=== PATIENT | female | born 1950 | race Caucasian/White ===

== ENCOUNTER 2019-05-02 19:11 | Observation (INO) | payer MEDICARE, OTHER ==
--- NOTE | 2019-05-02 19:37 | ER Document Report ---
ED Medical Screen (RME) - General Chief Complaint: Syncope Stated Complaint: SYNCOPE/DIZZINESS Time Seen by Provider: 05/02/19 19:28 Mode of Arrival: Wheelchair Information source: Patient Notes: 68-year-old female presents to ED for syncopal episode at home. She was sitting in the chair and did not feel good so she had her stand behind her. According to the patient her and daughter states that she passed out her head flopped back her eyes were open and she had a snoring type respirations. She states then her eyes rolled back for about 5 seconds and and then she woke u p. states that while she was out the son could not find a pulse but according to the patient that he says that he found a faint pulse. the patient states it is since she came to the son said he could feel her pulse good again. first episode of syncope was in December or January in [place] over there. She states she was in the laundry room she got very dizzy black feeling and next thing she knows she was on the floor looking up. Her heard the noise came in there and states that she was looking him him while she was on the floor. She states she did not go to the ER for several hours but had several episodes of where she was going in and out getting dizzy because if it was going to go away she did not want to go to the ER. They went to the ER. She states they kept her for 24 hours and did all kinds of test was she states the only thing they found different was a 3.9 cm aortic aneurysm they told her that they would monitor that until he got to the 5 and then they would be doing surgery. She states that this next syncopal episode was in March eating healthy since in [place] and she did not come to the hospital. She sat on the floor because she was so dizzy and she was afraid she was going to fall to do she states she did not actually lose consciousness that time. She states the dizziness is coming and going today.. She states she did fall today about 2 or 3:00 I have greeted and performed a rapid initial assessment of this patient. A comprehensive ED assessment and evaluation of the patient, analysis of test results and completion of medical decision making process will be conducted by an additional ED providers. Physical Exam - Vital signs Vitals: Temp Pulse Resp BP Pulse Ox 98 F 114 H 18 159/109 H 97 05/02/19 19:19 05/02/19 19:19 05/02/19 19:19 05/02/19 19:19 05/02/19 19:19 Course - Vital Signs Vital signs: Temp Pulse Resp BP Pulse Ox 98 F 114 H 18 159/109 H 97 05/02/19 19:19 05/02/19 19:19 05/02/19 19:19 05/02/19 19:19 05/02/19 19:19
[2019-05-02] MEDS ORDERED: DILTIAZEM HCL/D5W 125 MG/125 ML RTUINJ IV PRN ×2 (20:44→23:18)
[2019-05-02] MEDS ORDERED: DILTIAZEM HCL INJ 25 MG/5 ML VIAL IV ONE (20:44)
[2019-05-02 20:47] LABS: APPEARANCE,URINE SLIGHTLY-CLOUDY; BILIRUBIN,URINE NEGATIVE (NEGATIVE); COLOR,URINE YELLOW; GLUCOSE, URINE NEGATIVE (NEGATIVE); KETONES,URINE 20 mg/dL (NEGATIVE); LEUKOCYTE ESTERASE,URINE LARGE (NEGATIVE); NITRITE,URINE POSITIVE (NEGATIVE); PROTEIN,URINE NEGATIVE (NEGATIVE); URINE SPECIFIC GRAVITY 1.017; UROBILINOGEN,URINE NEGATIVE mg/dL (<2.0)
[2019-05-02 20:59] LABS: ABSOLUTE MONOCYTES (AUTO) 0.8 10^3/uL (0.1-1.4); ABSOLUTE NEUT (AUTO) 9.7 10^3/uL (1.7-8.2); BASOPHILS % (AUTO) 0.3 % (0-2); EOSINOPHILS % (AUTO) 0.2 % (0-6); HEMATOCRIT 37.7 % (36.0-47.0); HEMOGLOBIN 12.6 g/dL (12.0-15.5); LYMPHOCYTES % (AUTO) 15.9 % (13-45); MEAN CORPUSCULAR HEMOGLOBIN 30.5 pg (27.0-33.4); MEAN CORPUSCULAR HGB CONC 33.4 g/dL (32.0-36.0); MEAN CORPUSCULAR VOLUME 91 fl (80-97); MONOCYTES % (AUTO) 6.6 % (3-13); PLATELET COUNT 205 10^3/uL (150-450); RED BLOOD COUNT 4.13 10^6/uL (3.72-5.28); RED CELL DISTRIBUTION WIDTH 14.2 % (11.5-14.0); TOTAL CELLS COUNTED % (AUTO) 100 %; WHITE BLOOD COUNT 12.6 10^3/uL (4.0-10.5)
--- NOTE | 2019-05-02 21:08 | ER Document Report ---
ED General - General Chief Complaint: Syncope Stated Complaint: SYNCOPE/DIZZINESS Time Seen by Provider: 05/02/19 19:28 Mode of Arrival: Wheelchair - HPI Notes: 68-year-old female with a history of atrial fibrillation on flecainide presents with syncopal episode. Patient states earlier today she just not felt well, this is somewhat poorly described but approximate hour prior to arrival she states she was sitting down when she suddenly just passed out. She had no prodrome, no antecedent dizziness. According to family she was out for several minutes, turned blue at one point they believe quit breathing. They are uncertain if she lost her pulse or not. She then after several minutes spontaneously came around. She denies any headache. She used to be on Eliquis but when moved here, did not have continued prescription and could not afford it. She denies any fever chills sweats. No headache, no neurologic complaints. No associated chest pain. Compliant with her flecainide. Moderate intensity, sudden onset, nonradiating. No other modifying factors, no other associated symptoms, no other provocative or palliative factors. - Related Data Allergies/Adverse Reactions: Penicillins Allergy (Verified 05/02/19 19:41) prochlorperazine [From Compazine] Allergy (Verified 05/02/19 19:41) Home Medications: Propranolol, Letrozole, Gabapentin, Flecainide, Cetirizine Past Medical History - General Information source: Patient - Social History Smoking Status: Never Smoker Family History: Reviewed & Not Pertinent Patient has suicidal ideation: No Patient has homicidal ideation: No - Medical History Notes: Includes atrial fibrillation Review of Systems - Review of Systems Notes: Review of systems as in the history of present illness, otherwise negative x 10 systems. Physical Exam - Vital signs Vitals: Temp Pulse Resp BP Pulse Ox 98 F 114 H 18 159/109 H 97 05/02/19 19:19 05/02/19 19:19 05/02/19 19:19 05/02/19 19:19 05/02/19 19:19 - Notes Notes: General: Well developed . HEENT: Normocephalic, atraumatic. Pupils equal round reactive to light. No JVD. Chest: No trauma. Respiratory: Good air exchange, normal excursion. Cardiac: Regular rhythm. No murmurs or gallops. Abdomen: Soft, benign. Nondistended. Nontender. Back: No asymmetry or gross abnormality. Motor: Grossly normal power and tone. Neurologic: Alert, nonfocal. Cranial nerves II-12 are intact. Sensation intact. Vascular: Well perfused. Normal peripheral pulses. Skin: No petechiae or purpura. Course - Re-evaluation Re-evalutation: 05/02/19 21:07 68-year-old female presents with syncopal episode, certainly concerning for the potential absence of pulse, apnea and color change. Eyes strongly suspect she may have had underlying A. fib with RVR, less likely would entertain ventricular arrhythmia. Given the absence of any headache, any abnormal neurologic findings, doubt intracranial structural emergency or bleed. Plan proceed with labs and EKG, x-ray. She is in A. fib with RVR so we will proceed with rate control with IV diltiazem drip. 05/02/19 22:33 Patient is controlled on a drip at 5. Labs including CBC chemistries unremarkable, urinalysis consistent with infection, treated with IV antibiotics. Will give an initial dose of Lovenox as well. Admitted to the [facility]. - Vital Signs Vital signs: Temp Pulse Resp BP Pulse Ox 98 F 114 H 18 122/91 H 98 05/02/19 19:19 05/02/19 19:19 05/02/19 22:15 05/02/19 22:15 05/02/19 22:15 - Laboratory Result Diagrams: 05/02/19 20:20 05/02/19 20:20 Laboratory results interpreted by me: 05/02/19 05/02/19 05/02/19 20:20 20:20 20:20 WBC 12.6 H RDW 14.2 H Absolute Neuts (auto) 9.7 H Glucose 132 H Urine Ketones 20 H Urine Nitrite POSITIVE H Ur Leukocyte Esterase LARGE H - EKG Interpretation by Me EKG shows normal: QRS Complexes - Nonspecific ST-T changes Rate: Tachycardia Rhythm: A.Fib Critical Care Note - Critical Care Note Total time excluding time spent on procedures (mins): 25 Comments: Includes management of vasoactive drips, evaluation management of A. fib with RVR, evaluation of labs radiographs and discussion with admitting physician. Does not include time spent perform procedures. Discharge - Discharge Clinical Impression: Atrial fibrillation Qualifiers: Atrial fibrillation type: unspecified Qualified Code(s): I48.91 - Unspecified atrial fibrillation Condition: Serious Disposition: ADMITTED INPATIENT Admitting Provider: Jd (Hospitalist) Unit Admitted: [facility]
[2019-05-02 21:18] LABS: ALBUMIN 4.3 g/dL (3.5-5.0); ALKALINE PHOSPHATASE 71 U/L (38-126); ANION GAP 11 (5-19); ASPARTATE AMINO TRANSFERASE 23 U/L (14-36); BILIRUBIN,DIRECT 0.1 mg/dL (0.0-0.4); BILIRUBIN,TOTAL 0.5 mg/dL (0.2-1.3); BLOOD UREA NITROGEN 17 mg/dL (7-20); CALCIUM 9.5 mg/dL (8.4-10.2); CARBON DIOXIDE 26 mmol/L (22-30); CHLORIDE 102 mmol/L (98-107); CREATINE KINASE 55 U/L (30-135); GLUCOSE 132 mg/dL (75-110); POTASSIUM 3.8 mmol/L (3.6-5.0); TOTAL PROTEIN 7.8 g/dL (6.3-8.2)
[2019-05-02 21:31] LABS: CREATINE KINASE MB 0.69 ng/mL (<4.55)
--- NOTE | 2019-05-02 21:31 | RADIOLOGY REPORT (SQ) ---
EXAM DESCRIPTION: RadLex: XR HIP 2 OR MORE VIEWS Views: AP pelvis and one additional view of left hip CLINICAL HISTORY: 68 years Female, Hip injury COMPARISON: None. FINDINGS: Pelvic alignment is anatomic. There is some remodeling of the right rami. No diastasis of the sacroiliac joints or symphysis pubis. No left hip fracture or dislocation. IMPRESSION: 1. No acute findings.
[2019-05-02 21:32] LABS: TROPONIN I < 0.012 ng/mL
--- NOTE | 2019-05-02 21:36 | RADIOLOGY REPORT (SQ) ---
XR CHEST 1 VIEW CLINICAL STATEMENT: Syncope COMPARISON: None FINDINGS: Cardiomediastinal silhouette is within normal limits. There is no focal lung consolidation or pleural effusion. No evidence of pulmonary edema or pneumothorax. IMPRESSION: No acute cardiopulmonary disease.
[2019-05-02] MEDS ORDERED: CEFTRIAXONE 1 GM/D5W RTU 1 GM/50 ML RTUPB IV ONE (21:40)
[2019-05-02] MEDS ORDERED: ENOXAPARIN SODIUM INJ 100 MG/1 ML DISP.SYRIN SUBCUT SCH (22:45)
[2019-05-02] MEDS ORDERED: MAGNESIUM HYDROXIDE SUSP 30 ML UDCUP PO PRN (23:10)
[2019-05-02] MEDS ORDERED: ONDANSETRON HCL INJ/PF 4 MG/2 ML SDV IV PRN (23:10)
[2019-05-02] MEDS ORDERED: TEMAZEPAM 15 MG CAPSULE PO PRN (23:10)
[2019-05-02] MEDS ORDERED: MAG HYDROX/AL HYDROX/SIMETH SUSP 30 ML UDCUP PO PRN (23:10)
[2019-05-03] MEDS: FAMOTIDINE 20 MG TABLET PO SCH ×3 (01:03→22:05)
[2019-05-03 01:17] LABS: FREE T3 3.17 pg/mL (2.77-5.27); FREE T4 (FREE THYROXINE) 1.26 ng/dL (0.78-2.19)
[2019-05-03 01:31] LABS: THYROID STIMULATING HORMONE 1.21 uIU/mL (0.47-4.68)
[2019-05-03] MEDS ORDERED: RINGERS SOLUTION,LACTATED 1,000 ML IV ONE (03:00)
--- NOTE | 2019-05-03 03:06 | PDOC H&P ---
<PEDROJOSR Menard - Last Filed: 05/03/19 02:48> History of Present Illness Admission Date/PCP: 05/02/2019 22:30 No local PCP Patient complains of: Syncopal episode History of Present Illness: JESS YORK is a 68 year old female who presented to the emergency room with an acute syncopal episode. She admits that she suddenly began feeling dizzy and lightheaded while at home, about an hour prior to her ER presentation, suspecting she may be about to "pass out" she sat down in a chair and had her stand behind her. She then "passed out" for about 60 seconds and woke up. She further admits that she has had intermittent episodes of dizziness throughout the day today. She denies other associated or accompanying signs and symptoms. She admits several prior similar episodes of syncope over the last 4 months. She further admits a history of paroxysmal atrial fibrillation and is supposed to be taking Eliquis, which was being provided to her as samples by her previous care provider. Since she moved to this area recently, she no longer has access to this medication, but insists she has been taking her flecainide as directed. She has not identified any aggravating or ameliorating factors for her syncope. In the emergency room she was found to have atrial fibrillation with a rapid ventricular response and was started on a Cardizem infusion after receiving bolus dose of intravenous Cardizem. Patient was subsequently admitted to the IMCU for further evaluation and treatment. Past Medical History Cardiac Medical History: Reports: Atrial Fibrillation, Hypertension, Other - Abdominal aortic aneurysm (3.6 cm) Denies: Congestive Heart Failure, Coronary Artery Disease, Hyperlipidema Pulmonary Medical History: Denies: Asthma, Chronic Obstructive Pulmonary Disease (COPD) EENT Medical History: Reports: Nose - Allergic rhinitis Denies: Cataracts, Ears - Hearing aids Neurological Medical History: Reports: Other - Sense of Denies: Hemorrhagic CVA, Ischemic CVA, Seizures Endocrine Medical History: Denies: Diabetes Mellitus Type 1, Diabetes Mellitus Type 2, Hyperthyroidism, Hypothyroidism Renal/ Medical History: Denies: Chronic Kidney Disease, Nephrolithiasis Malignancy Medical History: Reports: Breast Cancer, Skin Cancer - Basal cell. [place] GI Medical History: Denies: Cirrhosis, Hepatitis Musculoskeltal Medical History: Reports: Other - Chronic back pain secondary to herniated disks Denies: Arthritis, Gout Skin Medical History: Denies: Eczema, Psoriasis Psychiatric Medical History: Denies: Alcohol Dependency, Substance Abuse, Tobacco Dependency Traumatic Medical History: Reports: None Hematology: Denies: Anemia, Bleeding Tendencies Infectious Medical History: Reports: None Past Surgical History Past Surgical History: Reports: Appendectomy, Mastectomy - Left, Thyroidectomy, Tonsillectomy Social History Information Source: Patient Lives with: Family, Spouse/Significant other Smoking Status: Former Smoker Electronic Cigarette use?: No Frequency of Alcohol Use: None Hx Recreational Drug Use: No Drugs: None Hx Prescription Drug Abuse: No - Advance Directive Resuscitation Status: Full Code Surrogate healthcare decision maker:: Gregorio York Family History Family History: CAD, Hypertension, Malignancy, Other - Aortic aneurysms. denies: DM Parental Family History Reviewed: Yes Children Family History Reviewed: No Sibling(s) Family History Reviewed.: Yes Medication/Allergy Home Medications: Aspirin [Aspirin 325 mg Tablet] 325 mg PO DAILY 05/03/19 Cetirizine HCl [Zyrtec] 10 mg PO DAILY 05/03/19 Flecainide Acetate [Tambocor 100 Mg Tablet] 50 mg PO Q12 05/03/19 Gabapentin [Neurontin 300 mg Capsule] 300 mg PO BID 05/03/19 Gabapentin [Neurontin 300 mg Capsule] 600 mg PO QHS 05/03/19 Letrozole [Femara 2.5 Mg Tablet] 2.5 mg PO DAILY 05/03/19 Propranolol HCl [Inderal 40 Mg Tablet] 40 mg PO Q12 05/03/19 Allergies/Adverse Reactions: Penicillins Allergy (Verified 05/02/19 19:41) prochlorperazine [From Compazine] Allergy (Verified 05/02/19 19:41) Review of Systems Constitutional: ABSENT: chills, fever(s) Eyes: ABSENT: visual disturbances, other - Eye pain Ears: ABSENT: hearing changes, other - Ear pain Nose, Mouth, and Throat: ABSENT: headache(s), mouth pain, sore throat Cardiovascular: PRESENT: as per HPI, other - Syncopal episode. ABSENT: chest pain, palpitations Respiratory: ABSENT: cough, dyspnea Gastrointestinal: ABSENT: abdominal pain, constipation, diarrhea, nausea, vomiting Genitourinary: ABSENT: dysuria, hematuria Musculoskeletal: ABSENT: back pain, joint swelling, muscle weakness Integumentary: ABSENT: pruritus, rash Neurological: PRESENT: as per HPI, dizziness, syncope. ABSENT: confusion, convulsions, focal weakness, memory loss Psychiatric: ABSENT: anxiety, depression Endocrine: ABSENT: cold intolerance, heat intolerance Hematologic/Lymphatic: ABSENT: easy bleeding, easy bruising Allergic/Immunologic: ABSENT: seasonal rhinorrhea Physical Exam Vital Signs: Temp Pulse Resp BP Pulse Ox 98 F 114 H 18 117/98 H 95 05/02/19 19:19 05/02/19 19:19 05/02/19 21:16 05/02/19 21:16 05/02/19 21:16 Intake & Output 04/30/19 05/01/19 05/02/19 23:59 23:59 23:59 Weight 88.451 kg General appearance: PRESENT: no acute distress, cooperative Head exam: PRESENT: atraumatic, normocephalic Eye exam: PRESENT: conjunctiva pink. ABSENT: conjunctival injection, scleral icterus Ear exam: PRESENT: normal external ear exam. ABSENT: bleeding, drainage Mouth exam: PRESENT: dry mucosa, neck supple Neck exam: ABSENT: thyromegaly, tracheal deviation Respiratory exam: PRESENT: clear to auscultation melissa, symmetrical, unlabored Cardiovascular exam: PRESENT: irregular rhythm - Irregularly irregular rate, systolic murmur - Grade 1/6 holosystolic murmur heard best at the apex with minimal precordial radiation, tachycardia. ABSENT: clicks, gallop, rubs Pulses: PRESENT: normal radial pulses, normal dorsalis pedis pul Vascular exam: PRESENT: normal capillary refill. ABSENT: pallor GI/Abdominal exam: PRESENT: normal bowel sounds, soft. ABSENT: tenderness Rectal exam: PRESENT: deferred Extremities exam: ABSENT: joint swelling, pedal edema Musculoskeletal exam: ABSENT: deformity, dislocation Neurological exam: PRESENT: alert, oriented to person, oriented to place, oriented to time, oriented to situation, CN II-XII grossly intact. ABSENT: motor sensory deficit Psychiatric exam: PRESENT: appropriate affect, normal mood Skin exam: PRESENT: dry, intact, warm. ABSENT: jaundice, rash, urticaria Results Laboratory Results: 05/02/19 20:20 05/02/19 20:20 05/02/19 05/02/19 05/02/19 20:20 20:20 20:20 WBC 12.6 H RBC 4.13 Hgb 12.6 Hct 37.7 MCV 91 MCH 30.5 MCHC 33.4 RDW 14.2 H Plt Count 205 Seg Neutrophils % 77.0 Sodium 139.0 Potassium 3.8 Chloride 102 Carbon Dioxide 26 Anion Gap 11 BUN 17 Creatinine 0.71 Est GFR ( Amer) > 60 Glucose 132 H Calcium 9.5 Total Bilirubin 0.5 AST 23 Alkaline Phosphatase 71 Total Protein 7.8 Albumin 4.3 Urine Color YELLOW Urine Appearance SLIGHTLY-CLOUDY Urine pH 6.0 Ur Specific [place] 1.017 Urine Protein NEGATIVE Urine Glucose (UA) NEGATIVE Urine Ketones 20 H Urine Blood NEGATIVE Urine Nitrite POSITIVE H Ur Leukocyte Esterase LARGE H Urine WBC (Auto) 126 Urine RBC (Auto) 11 05/02/19 05/02/19 20:20 20:20 Creatine Kinase 55 CK-MB (CK-2) 0.69 Troponin I < 0.012 Impressions: Chest X-Ray 05/02/19 20:46 IMPRESSION: No acute cardiopulmonary disease. Hip X-Ray 05/02/19 21:09 IMPRESSION: 1. No acute findings. Assessment and Plan - Diagnosis (1) Episode of syncope Qualifiers: Syncope type: unspecified Qualified Code(s): R55 - Syncope and collapse Is this a current diagnosis for this admission?: Yes Plan: Patient is being admitted to the [facility] and will be observed with serial cardiac enzymes as well as cardiac monitor. She is being treated with diltiazem as an intravenous infusion to control her rate. Diltiazem will be weaned as soon as possible. A cardiology consult will be obtained with Dr. Ibarra. Patient will be restarted on Eliquis for her chronic atrial fibrillation stroke prevention. (2) Atrial fibrillation with rapid ventricular response Plan: Patient is being admitted to the [facility] and will be observed with serial cardiac enzymes as well as cardiac monitor. She is being treated with diltiazem as an intravenous infusion to control her rate. Diltiazem will be weaned as soon as possible. A cardiology consult will be obtained with Dr. Ibarra. Patient will be restarted on Eliquis for her chronic atrial fibrillation stroke prevention. Will be continued on her usual medication regiment for rate control. (3) Pyuria Is this a current diagnosis for this admission?: Yes Plan: Patient started on oral Keflex pending urine culture results. (4) Essential tremor Is this a current diagnosis for this admission?: Yes Plan: Patient will be continued on therapy with Inderal which she uses for her essential tremor, hypertension and atrial fibrillation rate control. (5) Hypertension Qualifiers: Hypertension type: essential hypertension Qualified Code(s): I10 - Essential (primary) hypertension Is this a current diagnosis for this admission?: Yes Plan: Patient will be continued on therapy with Inderal which she uses for her essential tremor, hypertension and atrial fibrillation rate control. 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 (7) Abdominal aortic aneurysm (AAA) 35 to 39 mm in diameter Is this a current diagnosis for this admission?: Yes Plan: Patient's abdominal uric will need to be followed on a regular basis by her primary care provider or cardiology with an appropriate and timely referral to vascular surgery. - Time Medications reviewed and adjusted accordingly: Yes Anticipated discharge: Home - Inpatient Certification Based on my medical assessment, after consideration of the patient's comorbidities, presenting symptoms, or acuity I expect that the services needed warrant INPATIENT care.: Yes I certify that my determination is in accordance with my understanding of Medicare's requirements for reasonable and necessary INPATIENT services [42 CFR 412.3e].: Yes Medical Necessity: Significant Comorbidiites Make Outpatient Treatment Too Risky, Need Close Monitoring Due to Risk of Patient Decompensation, Need For IV Fluids, Need For Continuous Telemetry Monitoring, Need for Neurological Checks, Risk of Complication if Not Cared For in Hospital <AMARA SEVERINO - Last Filed: 05/03/19 17:10> History of Present Illness Admission Date/PCP: 05/02/19 22:42 History of Present Illness: JESS YORK is a 68 year old female Physical Exam Vital Signs: Temp Pulse Resp BP Pulse Ox 98.5 F 70 18 111/62 95 05/03/19 08:56 05/03/19 14:00 05/03/19 08:56 05/03/19 08:56 05/03/19 08:56 Intake & Output 05/02/19 05/03/1919 06:59 06:59 06:59 Intake Total 1057 Balance 1057 Weight 195 lb Results Laboratory Results: 05/03/19 10:00 05/03/19 10:00 05/02/19 05/02/19 05/02/19 20:20 20:20 20:20 WBC 12.6 H RBC 4.13 Hgb 12.6 Hct 37.7 MCV 91 MCH 30.5 MCHC 33.4 RDW 14.2 H Plt Count 205 Seg Neutrophils % 77.0 Sodium 139.0 Potassium 3.8 Chloride 102 Carbon Dioxide 26 Anion Gap 11 BUN 17 Creatinine 0.71 Est GFR ( Amer) > 60 Glucose 132 H Calcium 9.5 Magnesium Total Bilirubin 0.5 AST 23 Alkaline Phosphatase 71 Total Protein 7.8 Albumin 4.3 TSH Free T4 Free T3 pg/mL Urine Color YELLOW Urine Appearance SLIGHTLY-CLOUDY Urine pH 6.0 Ur Specific [place] 1.017 Urine Protein NEGATIVE Urine Glucose (UA) NEGATIVE Urine Ketones 20 H Urine Blood NEGATIVE Urine Nitrite POSITIVE H Ur Leukocyte Esterase LARGE H Urine WBC (Auto) 126 Urine RBC (Auto) 11 05/02/19 05/03/19 05/03/19 20:20 10:00 10:00 WBC 8.1 RBC 3.72 Hgb 11.5 L Hct 34.1 L MCV 92 MCH 31.0 MCHC 33.9 RDW 14.2 H Plt Count 178 Seg Neutrophils % Sodium 141.1 Potassium 3.5 L Chloride 104 Carbon Dioxide 24 Anion Gap 13 BUN 11 Creatinine 0.58 Est GFR ( Amer) > 60 Glucose 125 H Calcium 7.9 L Magnesium 1.7 Total Bilirubin AST Alkaline Phosphatase Total Protein Albumin TSH 1.21 Free T4 1.26 Free T3 pg/mL 3.17 Urine Color Urine Appearance Urine pH Ur Specific [place] Urine Protein Urine Glucose (UA) Urine Ketones Urine Blood Urine Nitrite Ur Leukocyte Esterase Urine WBC (Auto) Urine RBC (Auto) 05/02/19 05/02/19 05/03/19 20:20 20:20 02:30 Creatine Kinase 55 51 CK-MB (CK-2) 0.69 Troponin I < 0.012 05/03/19 05/03/19 05/03/19 02:30 10:00 10:00 Creatine Kinase 41 CK-MB (CK-2) 0.43 0.51 Troponin I < 0.012 0.034 05/03/19 16:15 Creatine Kinase 42 CK-MB (CK-2) Troponin I Impressions: Chest X-Ray 05/02/19 20:46 IMPRESSION: No acute cardiopulmonary disease. Hip X-Ray 05/02/19 21:09 IMPRESSION: 1. No acute findings.
[2019-05-03 03:07] LABS: CREATINE KINASE MB 0.43 ng/mL (<4.55)
[2019-05-03 03:20] LABS: TROPONIN I < 0.012 ng/mL
[2019-05-03] MEDS ORDERED: DIGOXIN INJ 0.5 MG/2 ML AMPULE IV ONE (08:30)
--- NOTE | 2019-05-03 09:25 | EKG REPORT ---
SEVERITY:- ABNORMAL ECG - ATRIAL FIBRILLATION PAIRED VENTRICULAR PREMATURE COMPLEXES PROBABLE POSTERIOR INFARCT NONSPECIFIC T ABNORMALITIES, LATERAL LEADS BORDERLINE PROLONGED QT INTERVAL : Confirmed by: Heather Ibarra MD 03-May-2019 09:25:15
[2019-05-03 10:31] LABS: HEMATOCRIT 34.1 % (36.0-47.0); HEMOGLOBIN 11.5 g/dL (12.0-15.5); MEAN CORPUSCULAR HGB CONC 33.9 g/dL (32.0-36.0); MEAN CORPUSCULAR VOLUME 92 fl (80-97); PLATELET COUNT 178 10^3/uL (150-450); RED BLOOD COUNT 3.72 10^6/uL (3.72-5.28); RED CELL DISTRIBUTION WIDTH 14.2 % (11.5-14.0); WHITE BLOOD COUNT 8.1 10^3/uL (4.0-10.5)
[2019-05-03] MEDS: DOCUSATE SODIUM 100 MG CAPSULE PO SCH ×2 (10:37→17:50)
[2019-05-03] MEDS: CEPHALEXIN 500 MG CAPSULE PO SCH ×2 (10:37→22:05)
[2019-05-03] MEDS: APIXABAN 5 MG TABLET PO SCH ×2 (10:37→17:50)
[2019-05-03] MEDS ORDERED: DILTIAZEM HCL/D5W 125 MG/125 ML RTUINJ IV PRN (10:49)
[2019-05-03 10:54] LABS: ANION GAP 13 (5-19); BLOOD UREA NITROGEN 11 mg/dL (7-20); CALCIUM 7.9 mg/dL (8.4-10.2); CARBON DIOXIDE 24 mmol/L (22-30); CHLORIDE 104 mmol/L (98-107); CREATINE KINASE 41 U/L (30-135); GLUCOSE 125 mg/dL (75-110); POTASSIUM 3.5 mmol/L (3.6-5.0)
[2019-05-03] MEDS ORDERED: METOPROLOL TARTRATE 50 MG TABLET PO SCH (11:00)
[2019-05-03 11:04] LABS: CREATINE KINASE MB 0.51 ng/mL (<4.55); TROPONIN I 0.034 ng/mL
[2019-05-03] MEDS ORDERED: FLECAINIDE ACETATE 100 MG TABLET PO ONE (12:30)
[2019-05-03 17:10] LABS: CREATINE KINASE MB 0.38 ng/mL (<4.55); TROPONIN I 0.038 ng/mL
--- NOTE | 2019-05-03 17:12 | PDOC PROGRESS REPORT ---
Subjective Progress Note for:: 05/03/19 Subjective:: This is a 68-year-old female who was admitted for A. fib with RVR. She was initially started on Cardizem drip and was weaned off overnight. Patient has converted to normal sinus rhythm with a heart rate in the 17th. She denies chest pain or shortness of breath. Appreciate cardiology recommendations. Reason For Visit: ATRIAL FIBRILLATION WITH RAPID VENTRICULAR Physical Exam Vital Signs: Temp Pulse Resp BP Pulse Ox 98.5 F 70 18 111/62 95 05/03/19 08:56 05/03/19 14:00 05/03/19 08:56 05/03/19 08:56 05/03/19 08:56 Intake & Output 05/02/19 05/03/19 05/04/19 06:59 06:59 06:59 Intake Total 1057 Balance 1057 Weight 195 lb General appearance: PRESENT: no acute distress, well-developed, well-nourished Head exam: PRESENT: atraumatic, normocephalic Eye exam: PRESENT: conjunctiva pink, EOMI, PERRLA. ABSENT: scleral icterus Ear exam: PRESENT: normal external ear exam Mouth exam: PRESENT: moist, tongue midline Neck exam: ABSENT: carotid bruit, JVD, lymphadenopathy, thyromegaly Respiratory exam: PRESENT: clear to auscultation melissa. ABSENT: rales, rhonchi, wheezes Cardiovascular exam: PRESENT: RRR. ABSENT: diastolic murmur, rubs, systolic murmur Pulses: PRESENT: normal dorsalis pedis pul GI/Abdominal exam: PRESENT: normal bowel sounds, soft. ABSENT: distended, guarding, mass, organolmegaly, rebound, tenderness Rectal exam: PRESENT: deferred Extremities exam: PRESENT: full ROM. ABSENT: calf tenderness, clubbing, pedal edema Neurological exam: PRESENT: alert, awake, oriented to person, oriented to place, oriented to time, oriented to situation, CN II-XII grossly intact. ABSENT: motor sensory deficit Skin exam: PRESENT: dry, intact, warm. ABSENT: cyanosis, rash Results Laboratory Results: 05/03/19 10:00 05/03/19 10:00 05/02/19 05/02/19 05/02/19 20:20 20:20 20:20 WBC 12.6 H RBC 4.13 Hgb 12.6 Hct 37.7 MCV 91 MCH 30.5 MCHC 33.4 RDW 14.2 H Plt Count 205 Seg Neutrophils % 77.0 Sodium 139.0 Potassium 3.8 Chloride 102 Carbon Dioxide 26 Anion Gap 11 BUN 17 Creatinine 0.71 Est GFR ( Amer) > 60 Glucose 132 H Calcium 9.5 Magnesium Total Bilirubin 0.5 AST 23 Alkaline Phosphatase 71 Total Protein 7.8 Albumin 4.3 TSH Free T4 Free T3 pg/mL Urine Color YELLOW Urine Appearance SLIGHTLY-CLOUDY Urine pH 6.0 Ur Specific [place] 1.017 Urine Protein NEGATIVE Urine Glucose (UA) NEGATIVE Urine Ketones 20 H Urine Blood NEGATIVE Urine Nitrite POSITIVE H Ur Leukocyte Esterase LARGE H Urine WBC (Auto) 126 Urine RBC (Auto) 11 05/02/19 05/03/19 05/03/19 20:20 10:00 10:00 WBC 8.1 RBC 3.72 Hgb 11.5 L Hct 34.1 L MCV 92 MCH 31.0 MCHC 33.9 RDW 14.2 H Plt Count 178 Seg Neutrophils % Sodium 141.1 Potassium 3.5 L Chloride 104 Carbon Dioxide 24 Anion Gap 13 BUN 11 Creatinine 0.58 Est GFR ( Amer) > 60 Glucose 125 H Calcium 7.9 L Magnesium 1.7 Total Bilirubin AST Alkaline Phosphatase Total Protein Albumin TSH 1.21 Free T4 1.26 Free T3 pg/mL 3.17 Urine Color Urine Appearance Urine pH Ur Specific [place] Urine Protein Urine Glucose (UA) Urine Ketones Urine Blood Urine Nitrite Ur Leukocyte Esterase Urine WBC (Auto) Urine RBC (Auto) 05/02/19 05/02/19 05/03/19 20:20 20:20 02:30 Creatine Kinase 55 51 CK-MB (CK-2) 0.69 Troponin I < 0.012 05/03/19 05/03/19 05/03/19 02:30 10:00 10:00 Creatine Kinase 41 CK-MB (CK-2) 0.43 0.51 Troponin I < 0.012 0.034 Impressions: Chest X-Ray 05/02/19 20:46 IMPRESSION: No acute cardiopulmonary disease. Hip X-Ray 05/02/19 21:09 IMPRESSION: 1. No acute findings. Assessment and Plan - Diagnosis (1) Atrial fibrillation with rapid ventricular response Is this a current diagnosis for this admission?: Yes Plan: Off Cardizem drip. Cardiology has ordered a dose of digoxin this morning and has restarted her on flecainide today. She was restarted on Eliquis and she did say she was not compliant to it due to cost and insurance issues. We will try to see if we can get her some coupons for Xarelto. (2) Hypertension Qualifiers: Hypertension type: essential hypertension Qualified Code(s): I10 - Essential (primary) hypertension Is this a current diagnosis for this admission?: Yes - Time Time Spent with patient: 25-34 minutes
--- NOTE | 2019-05-03 19:43 | PDOC CONSULTATION ---
Consultation-Blank Consultation: Cardiology CONSULTATION BY DR. ARTEM Ibarra on 05/03/2019. Patient seen at 8:30 AM on 05/03/2019. Subsequently the patient was seen again after she converted to sinus rhythm at around 2 PM. The second visit was only brief. REASON FOR CONSULTATION: Recurrent atrial fibrillation and an episode of syncop e. CONSULT REQUESTING PHYSICIAN: Dr. Sean Samuels, [facility]. HISTORY PRESENT ILLNESS: Patient is a 68-year-old female, who was recently moved here from [facility]. She has a history of paroxysmal atrial fibrillation since few years. She has been maintained in sinus rhythm on flecainide. The patient also recently was started on Eliquis. She has mild hypertension and essential tremors. She is on propranolol 40 mg p.o. twice daily. She has no history of diabetes mellitus. The patient states yesterday she had sudden onset of palpitations with rapid beating of the heart and had a brief syncopal episode, with no injuries since the family supported her at the time of her syncope. Some of the family members state that prior to her heart rate being fast she her heart rate was felt to be 40 bpm by her feeling her wrist pulse. She has no prior history of syncope. She is had a history of proximal atrial fibrillation initially was on flecainide and aspirin and subsequently recently was started on Eliquis. She has no history of coronary artery disease PA or anginal symptoms. No history of congestive heart failure. There is the first episode of syncope. She also this admission was found to have a urinary tract infection. She is on currently antibiotics for this. She was initially placed on IV Cardizem which had to be discontinued due to her blood pressure being low. Subsequently this morning the patient spontaneously converted to sinus rhythm. Hence the patient was given flecainide 50 mg p.o. x1 and will continue at 50 mg p.o. every 12 hours and increase as tolerated. The patient also has been started on chronic anticoagulation. The patient already is aware of the benefits and risks of chronic anticoagulation therapy. She also has a history of a 3.9 cm abdominal aortic aneurysm, which she states it has been stable and the patient is without any symptoms. She is requesting a repeat ultrasound of the abdomen to further define the status of this aneurysm. She has no abdominal pain or flank pain or back pain. The patient denies any fever chills or rigors or cough or sputum production, and no symptoms of urinary tract infection such as dysuria pyuria or hematuria. Past Medical History Cardiac Medical History: Reports: Atrial Fibrillation, Hypertension, Other - Abdominal aortic aneurysm (3.6 cm) Denies: Congestive Heart Failure, Coronary Artery Disease, Hyperlipidema Pulmonary Medical History: Denies: Asthma, Chronic Obstructive Pulmonary Disease (COPD) EENT Medical History: Reports: Nose - Allergic rhinitis Denies: Cataracts, Ears - Hearing aids Neurological Medical History: Reports: Other - Sense of Denies: Hemorrhagic CVA, Ischemic CVA, Seizures Endocrine Medical History: Denies: Diabetes Mellitus Type 1, Diabetes Mellitus Type 2, Hyperthyroidism, Hypothyroidism Renal/ Medical History: Denies: Chronic Kidney Disease, Nephrolithiasis Malignancy Medical History: Reports: Breast Cancer, Skin Cancer - Basal cell. Symptoms GI Medical History: Denies: Cirrhosis, Hepatitis Musculoskeltal Medical History: Reports: Other - Chronic back pain secondary to herniated disks Denies: Arthritis, Gout Skin Medical History: Denies: Eczema, Psoriasis Psychiatric Medical History: Denies: Alcohol Dependency, Substance Abuse, Tobacco Dependency Traumatic Medical History: Reports: None Hematology: Denies: Anemia, Bleeding Tendencies Infectious Medical History: Reports: None Past Surgical History Past Surgical History: Reports: Appendectomy, Mastectomy - Left, Thyroidectomy, Tonsillectomy Social History Information Source: Patient Lives with: Family, Spouse/Significant other Smoking Status: Former Smoker Electronic Cigarette use?: No Frequency of Alcohol Use: None Hx Recreational Drug Use: No Drugs: None Hx Prescription Drug Abuse: No - Advance Directive Resuscitation Status: Full Code Surrogate healthcare decision maker:: Gregorio York Family History Family History: CAD, Hypertension, Malignancy, Other - Aortic aneurysms. denies: DM Parental Family History Reviewed: Yes Children Family History Reviewed: No Sibling(s) Family History Reviewed.: Yes Medication/Allergy Home Medications: Aspirin [Aspirin 325 mg Tablet] 325 mg PO DAILY 05/03/19 Cetirizine HCl [Zyrtec] 10 mg PO DAILY 05/03/19 Flecainide Acetate [Tambocor 100 Mg Tablet] 50 mg PO Q12 05/03/19 Gabapentin [Neurontin 300 mg Capsule] 300 mg PO BID 05/03/19 Gabapentin [Neurontin 300 mg Capsule] 600 mg PO QHS 05/03/19 Letrozole [Femara 2.5 Mg Tablet] 2.5 mg PO DAILY 05/03/19 Propranolol HCl [Inderal 40 Mg Tablet] 40 mg PO Q12 05/03/19 Allergies/Adverse Reactions: Penicillins Allergy (Verified 05/02/19 19:41) prochlorperazine [From Compazine] Allergy (Verified 05/02/19 19:41) Current Medications Generic Name Dose Route Start Last Admin Trade Name Freq PRN Reason Stop Dose Admin Al Hydrox/Mg Hydrox/Simethicone 30 ml 05/02/19 23:10 Maalox Plus Susp 30 Udcup PO 06/01/19 23:09 Q6HP PRN HEARTBURN Apixaban 5 mg 05/03/19 10:00 05/03/19 17:50 Eliquis 5 Mg Tablet PO 06/02/19 09:59 5 mg BID TONY Administration Cephalexin HCl 500 mg 05/03/19 10:00 05/03/19 10:37 Keflex 500 Mg Capsule PO 05/10/19 09:59 500 mg Q12 TONY Administration Docusate Sodium 100 mg 05/03/19 10:00 05/03/19 17:50 Colace 100 Mg Capsule PO 06/02/19 09:59 100 mg BID TONY Administration Famotidine 20 mg 05/02/19 23:15 05/03/19 10:37 Pepcid 20 Mg Tablet PO 06/01/19 23:14 20 mg Q12 TONY Administration Flecainide Acetate 50 mg 05/03/19 22:00 Tambocor 100 Mg Tablet PO 06/02/19 21:59 Q12 TONY Influenza Virus Vaccine Quadrival 0.5 ml 05/04/19 08:00 Flulaval Quad 2019-20 Vac 0.5 Ml Syr IM 05/04/19 08:01 .ONCE ONE Magnesium Hydroxide 30 ml 05/02/19 23:10 Milk Of Magnesia 30 Ml Udcup PO 06/01/19 23:09 HSP PRN FOR CONSTIPATION Ondansetron HCl 4 mg 05/02/19 23:10 Zofran Inj/Pf 4 Mg/2 Ml Sdv IV 06/01/19 23:09 Q4HP PRN FOR NAUSEA/VOMITING Sodium Chloride 2.5 ml 05/03/19 06:00 05/03/19 13:34 Saline Flush 2.5 Ml Monoject Prefil Syrin IV 06/02/19 05:59 Not Given Q8 TONY Temazepam 15 mg 05/02/19 23:10 Restoril 15 Mg Capsule PO 05/09/19 23:09 HSP PRN SLEEP OR INSOMNIA Discontinued Medications Generic Name Dose Route Start Last Admin Trade Name Elieserq PRN Reason Stop Dose Admin Digoxin 0.125 mg 05/03/19 08:30 05/03/19 08:27 Lanoxin Inj 0.5 Mg/2 Ml Ampule IV 05/03/19 08:31 0.125 mg NOW ONE Administration Diltiazem HCl 15 mg 05/02/19 20:44 05/02/19 20:49 Cardizem Inj 25 Mg/5 Ml Vial IV 05/02/19 20:45 15 mg NOW ONE Administration Enoxaparin Sodium 90 mg 05/02/19 22:45 05/02/19 22:55 Lovenox Inj 100 Mg/1 Ml Disp.Syrin SUBCUT 06/01/19 22:44 90 mg Q12 TONY Administration Flecainide Acetate 50 mg 05/03/19 12:30 05/03/19 12:12 Tambocor 100 Mg Tablet PO 05/03/19 12:31 50 mg NOW ONE Administration Diltiazem HCl 125 mg in 125 mls @ 5 mls/hr 05/02/19 20:44 05/02/19 21:34 Cardizem Rtu Inj 125 Mg-D5w 125 Ml Premix IV 06/01/19 20:43 5 mg/hr CONTINUOUS PRN 5 mls/hr THIS MED IS NOT "PRN" Administration Protocol Ceftriaxone Sodium/Dextrose 1 gm in 50 mls @ 100 mls/hr 05/02/19 21:40 05/02/19 23:44 Rocephin Rtu 1 Gm/D5w 50 Ml Premix IV 05/02/19 22:09 Infused NOW ONE Infusion Diltiazem HCl 125 mg in 125 mls @ 0 mls/hr 05/02/19 23:18 05/03/19 02:31 Cardizem Rtu Inj 125 Mg-D5w 125 Ml Premix IV 06/01/19 23:17 0 mls/hr CONTINUOUS PRN 0 mls/hr THIS MED IS NOT "PRN" Titration Protocol Titrate Lactated Ringer's 1,000 mls @ 0 mls/hr 05/03/19 03:00 05/03/19 04:23 Lactated Ringers 1000 Ml Iv Soln IV 05/03/19 03:01 Infused BOLUS ONE Infusion Wide Open Diltiazem HCl 125 mg in 125 mls @ 2.5 mls/hr 05/03/19 10:49 Cardizem Rtu Inj 125 Mg-D5w 125 Ml Premix IV 06/02/19 10:48 CONTINUOUS PRN THIS MED IS NOT "PRN" Protocol Metoprolol Tartrate 50 mg 05/03/19 11:00 Lopressor 50 Mg Tablet PO 06/02/19 10:59 Q12 TONY Review of Systems Constitutional: ABSENT: chills, fever(s) Eyes: ABSENT: visual disturbances, other - Eye pain Ears: ABSENT: hearing changes, other - Ear pain Nose, Mouth, and Throat: ABSENT: headache(s), mouth pain, sore throat Cardiovascular: PRESENT: as per HPI, other - Syncopal episode. ABSENT: chest pain, palpitations Respiratory: ABSENT: cough, dyspnea Gastrointestinal: ABSENT: abdominal pain, constipation, diarrhea, nausea, vomiting Genitourinary: ABSENT: dysuria, hematuria Musculoskeletal: ABSENT: back pain, joint swelling, muscle weakness Integumentary: ABSENT: pruritus, rash Neurological: PRESENT: as per HPI, dizziness, syncope. ABSENT: confusion, convulsions, focal weakness, memory loss Psychiatric: ABSENT: anxiety, depression Endocrine: ABSENT: cold intolerance, heat intolerance Hematologic/Lymphatic: ABSENT: easy bleeding, easy bruising Allergic/Immunologic: ABSENT: seasonal rhinorrhea PHYSICAL EXAMINATION: The patient is well-built and well-nourished. At present in no acute distress. Selected Entries 05/03/19 05/03/19 08:56 09:00 Temperature 98.5 F Pulse Rate 117 H Heart Rate ( 90 Monitors) Respiratory 18 Rate Blood Pressure 111/62 Blood Pressure 78 Mean BP Location Right Arm BP Position Supine O2 Sat by Pulse 95 Oximetry Oxygen Delivery Room Air Method HEAD: Is atraumatic normocephalic. EYES: Pupils are equal round regular reactive to light and accommodation. There is no clinical pallor. There is no scleral icterus. External ocular movements are normal. EARS: Tympanic membranes are intact. External auditory canals are clear. NOSE: Nasal mucous membranes are not inflamed. There is no deviated nasal septum. MOUTH: Mucous membranes of mouth are moist. Tongue is moist. There is no ulcers. There is no bleeding from the gums. THROAT: There is no redness of the oropharynx. There is no exudates in the throat. SKIN: There is no petechia or ecchymosis. There is no skin rashes or skin lesions. NECK: Is supple. There is no JVD. Carotids are equal there is no bruits. There is no lymphadenopathy. There is no goiter. There is no accessory muscles of respiration in use. Trachea central. LUNGS: Clear to auscultation percussion without any rhonchi rales or wheezing. There is no chest wall tenderness. HEART: S1-S2 is heard. S1 is of variable intensity, when she was in atrial fibrillation. Subsequent to conversion to sinus rhythm the patient's S1 is of normal intensity.. There is no S3 gallop. There is no S4 gallop. There is systolic murmur left sternal border and the apex, without radiation. There is no murmur of aortic stenosis. Prosthetic aortic valve click heard crisply. There is no aortic regurgitation m urmur.. There is no rub. ABDOMEN: Is Nontender. There is no hepatosplenomegaly. Bowel sounds are well heard. EXTREMITIES: Femorals are deep. Femorals are slightly diminished. There is no femoral bruits. There is no pedal edema. There is no DVT or cellulitis. Leg pulses are diminished. There is no cyanosis or clubbing. Capillary refill is normal. There is no calf tenderness. JOINT CREASER: The patient is conscious awake alert oriented x3 with no focal deficits. PSYCHIATRIC: The patient judgment and insight are intact her affect is normal. Labs- All tests 24 hr 05/02/19 05/02/19 05/02/19 20:20 20:20 20:20 WBC 12.6 H RBC 4.13 Hgb 12.6 Hct 37.7 MCV 91 MCH 30.5 MCHC 33.4 RDW 14.2 H Plt Count 205 Lymph % (Auto) 15.9 [place] % (Auto) 6.6 Eos % (Auto) 0.2 Baso % (Auto) 0.3 Absolute Neuts (auto) 9.7 H Absolute Lymphs (auto) 2.0 Absolute Monos (auto) 0.8 Absolute Eos (auto) 0.0 Absolute Basos (auto) 0.0 Seg Neutrophils % 77.0 Sodium 139.0 Potassium 3.8 Chloride 102 Carbon Dioxide 26 Anion Gap 11 BUN 17 Creatinine 0.71 Est GFR ( Amer) > 60 Est GFR (MDRD) Non-Af > 60 Glucose 132 H Calcium 9.5 Magnesium Total Bilirubin 0.5 Direct Bilirubin 0.1 Neonat Total Bilirubin Not Reportable Neonat Direct Bilirubin Not Reportable Neonat Indirect Bili Not Reportable AST 23 ALT 19 Alkaline Phosphatase 71 Creatine Kinase 55 CK-MB (CK-2) 0.69 Troponin I < 0.012 Total Protein 7.8 Albumin 4.3 TSH Free T4 Free T3 pg/mL Urine Color Urine Appearance Urine pH Ur Specific [place] Urine Protein Urine Glucose (UA) Urine Ketones Urine Blood Urine Nitrite Urine Bilirubin Urine Urobilinogen Ur Leukocyte Esterase Urine WBC (Auto) Urine RBC (Auto) U Hyaline Cast (Auto) Urine Bacteria (Auto) Urine WBC Clumps Squamous Epi Cells Auto Urine Mucus (Auto) Urine Ascorbic Acid 05/02/19 05/02/19 05/03/19 20:20 20:20 02:30 WBC RBC Hgb Hct MCV MCH MCHC RDW Plt Count Lymph % (Auto) [place] % (Auto) Eos % (Auto) Baso % (Auto) Absolute Neuts (auto) Absolute Lymphs (auto) Absolute Monos (auto) Absolute Eos (auto) Absolute Basos (auto) Seg Neutrophils % Sodium Potassium Chloride Carbon Dioxide Anion Gap BUN Creatinine Est GFR ( Amer) Est GFR (MDRD) Non-Af Glucose Calcium Magnesium Total Bilirubin Direct Bilirubin Neonat Total Bilirubin Neonat Direct Bilirubin Neonat Indirect Bili AST ALT Alkaline Phosphatase Creatine Kinase 51 CK-MB (CK-2) Troponin I Total Protein Albumin TSH 1.21 Free T4 1.26 Free T3 pg/mL 3.17 Urine Color YELLOW Urine Appearance SLIGHTLY-CLOUDY Urine pH 6.0 Ur Specific [place] 1.017 Urine Protein NEGATIVE Urine Glucose (UA) NEGATIVE Urine Ketones 20 H Urine Blood NEGATIVE Urine Nitrite POSITIVE H Urine Bilirubin NEGATIVE Urine Urobilinogen NEGATIVE Ur Leukocyte Esterase LARGE H Urine WBC (Auto) 126 Urine RBC (Auto) 11 U Hyaline Cast (Auto) 1 Urine Bacteria (Auto) 2+ Urine WBC Clumps FEW Squamous Epi Cells Auto 1 Urine Mucus (Auto) FEW Urine Ascorbic Acid NEGATIVE 05/03/19 05/03/19 05/03/19 02:30 10:00 10:00 WBC RBC Hgb Hct MCV MCH MCHC RDW Plt Count Lymph % (Auto) [place]ink[place] % (Auto) Eos % (Auto) Baso % (Auto) Absolute Neuts (auto) Absolute Lymphs (auto) Absolute Monos (auto) Absolute Eos (auto) Absolute Basos (auto) Seg Neutrophils % Sodium 141.1 Potassium 3.5 L Chloride 104 Carbon Dioxide 24 Anion Gap 13 BUN 11 Creatinine 0.58 Est GFR ( Amer) > 60 Est GFR (MDRD) Non-Af > 60 Glucose 125 H Calcium 7.9 L Magnesium 1.7 Total Bilirubin Direct Bilirubin Neonat Total Bilirubin Neonat Direct Bilirubin Neonat Indirect Bili AST ALT Alkaline Phosphatase Creatine Kinase 41 CK-MB (CK-2) 0.43 0.51 Troponin I < 0.012 0.034 Total Protein Albumin TSH Free T4 Free T3 pg/mL Urine Color Urine Appearance Urine pH Ur Specific [place] Urine Protein Urine Glucose (UA) Urine Ketones Urine Blood Urine Nitrite Urine Bilirubin Urine Urobilinogen Ur Leukocyte Esterase Urine WBC (Auto) Urine RBC (Auto) U Hyaline Cast (Auto) Urine Bacteria (Auto) Urine WBC Clumps Squamous Epi Cells Auto Urine Mucus (Auto) Urine Ascorbic Acid 05/03/19 05/03/19 05/03/19 10:00 16:15 16:15 WBC 8.1 RBC 3.72 Hgb 11.5 L Hct 34.1 L MCV 92 MCH 31.0 MCHC 33.9 RDW 14.2 H Plt Count 178 Lymph % (Auto) [place] % (Auto) Eos % (Auto) Baso % (Auto) Absolute Neuts (auto) Absolute Lymphs (auto) Absolute Monos (auto) Absolute Eos (auto) Absolute Basos (auto) Seg Neutrophils % Sodium Potassium Chloride Carbon Dioxide Anion Gap BUN Creatinine Est GFR ( Amer) Est GFR (MDRD) Non-Af Glucose Calcium Magnesium Total Bilirubin Direct Bilirubin Neonat Total Bilirubin Neonat Direct Bilirubin Neonat Indirect Bili AST ALT Alkaline Phosphatase Creatine Kinase 42 CK-MB (CK-2) 0.38 Troponin I 0.038 Total Protein Albumin TSH Free T4 Free T3 pg/mL Urine Color Urine Appearance Urine pH Ur Specific [place] Urine Protein Urine Glucose (UA) Urine Ketones Urine Blood Urine Nitrite Urine Bilirubin Urine Urobilinogen Ur Leukocyte Esterase Urine WBC (Auto) Urine RBC (Auto) U Hyaline Cast (Auto) Urine Bacteria (Auto) Urine WBC Clumps Squamous Epi Cells Auto Urine Mucus (Auto) Urine Ascorbic Acid Chest X-Ray 05/02/19 20:46 IMPRESSION: No acute cardiopulmonary disease. Hip X-Ray 05/02/19 21:09 IMPRESSION: \\ 1. No acute findings. EKG #1: ATRIAL FIBRILLATION [PVPC] . PAIRED VENTRICULAR PREMATURE COMPLEXES [PPMI] . PROBABLE POSTERIOR INFARCT [T1LA] . NONSPECIFIC T ABNORMALITIES, LATERAL LEADS [LQTB] . BORDERLINE PROLONGED QT INTERVAL Subsequently the monitor strips can that the patient is in sinus rhythm. Will get an EKG later in the a.m. tomorrow. 1. Paroxysmal atrial fibrillation: We will continue the patient's flecainide since the patient now is in sinus rhythm. We will increase the dose as tolerated. Continue patient on Eliquis or Xarelto since the patient corrected Roscoe vas 2 score is 3 [1 for age, 1 for mild hypertension,1 for patient being female]. 2. Brief syncopal episode secondary to atrial fibrillation with rapid ventricular response: The patient's family brought about a point that the patient heart rate was low prior to her becoming syncopal although she was syncopal at a fast heart rate. Hence would recommend a 30-day event monitor. This can be done as an outpatient. 3. Mild hypertension: Continue propranolol. 4. 3.9 cm abdominal aortic aneurysm: Asymptomatic. Will repeat abdominal ultrasound for reevaluation of that size. 5. Essential tremors: Would recommend decreasing the patient's propranolol dose so that there is room for blood pressure to increase the patient's flecainide. 6. Urinary tract infection: Continue current antibiotics. Most likely the urinary tract infection was suppressed dictating cause for the patient's recurrent atrial fibrillation. 7. Systolic murmur: Most likely mitral regurgitation. The patient states that she recently few months ago had stress test and echo in [facility]. We will get the records. Medications reviewed management plan discussed with attending physician Dr. Samuels. Medical decision making is of high complexity. 60 minutes spent on this patient with more than 50% of time spent in direct patient care. Patient cardiac reis is stable. The patient remains in sinus rhythm would recommend discharging the patient home tomorrow. Will sign off the case. The attending physician will follow up with the findings of the abdominal ultrasound. We will follow the patient in the office. Contact numbers given..
[2019-05-03] MEDS: FLECAINIDE ACETATE 100 MG TABLET PO SCH (22:05)
[2019-05-04 07:09] LABS: HEMATOCRIT 31.9 % (36.0-47.0); HEMOGLOBIN 10.7 g/dL (12.0-15.5); MEAN CORPUSCULAR HEMOGLOBIN 30.4 pg (27.0-33.4); MEAN CORPUSCULAR HGB CONC 33.5 g/dL (32.0-36.0); MEAN CORPUSCULAR VOLUME 91 fl (80-97); PLATELET COUNT 133 10^3/uL (150-450); RED BLOOD COUNT 3.51 10^6/uL (3.72-5.28); RED CELL DISTRIBUTION WIDTH 14.4 % (11.5-14.0); WHITE BLOOD COUNT 5.2 10^3/uL (4.0-10.5)
--- NOTE | 2019-05-04 07:19 | RADIOLOGY REPORT (SQ) ---
EXAM DESCRIPTION: U/S ABD AORTIC SCREENING COMPLETED DATE/TIME: 05/04/2019 6:14 am REASON FOR STUDY: abdominal aneursym COMPARISON: None. TECHNIQUE: Static and dynamic grayscale images acquired of the aorta and stored on PACs. Selected co jeaneth Doppler and spectral images recorded. LIMITATIONS: None. FINDINGS: AORTIC CALIBER MAXIMAL PROXIMAL: 1.9 cm. MID: 1.5 cm. DISTAL: 0.9 cm. ILIAC DIAMETER RIGHT: 0.7 cm. LEFT: 0.7 cm. OTHER: No other significant finding. IMPRESSION: NO ABDOMINAL AORTIC ANEURYSM. COMMENT: Aortic aneurysm imaging followup: Negative, no followup necessary. *Based upon the Society for Vascular Surgery Guidelines: J Vasc Surg. 2009 Oct;50(4 Suppl):S2-49 *For aortas of maximum diameter of 2.6-2.9 cm meeting the criteria for AAA (?1.5 x proximal normal se gment) TECHNICAL DOCUMENTATION: JOB ID: [id number] [employer]- All Rights Reserved Reading location - IP/workstation name: [email or web address]
[2019-05-04] MEDS ORDERED: INFLUENZA QUAD (6MOS+) 2019-20 VAC 0.5 ML SYR IM ONE (08:00)
[2019-05-04] MEDS: FLECAINIDE ACETATE 100 MG TABLET PO SCH (09:54)
[2019-05-04] MEDS: DOCUSATE SODIUM 100 MG CAPSULE PO SCH (09:54)
[2019-05-04] MEDS: APIXABAN 5 MG TABLET PO SCH (09:54)
[2019-05-04] MEDS: CEPHALEXIN 500 MG CAPSULE PO SCH (09:54)
[2019-05-04] MEDS: FAMOTIDINE 20 MG TABLET PO SCH (09:54)
--- NOTE | 2019-05-04 09:59 | EKG REPORT ---
SEVERITY:- BORDERLINE ECG - SINUS RHYTHM PROBABLE LEFT ATRIAL ABNORMALITY BORDERLINE R WAVE PROGRESSION, ANTERIOR LEADS : Confirmed by: Heather Ibarra MD 04-May-2019 09:58:08
[2019-05-04 13:58] VITALS: BP 120/68
--- NOTE | 2019-05-05 17:58 | PDOC DISCHARGE SUMMARY ---
Impression - Admit/DC Date/PCP Admission Date/Primary Care Provider: 05/02/19 22:42 Discharge Date: 05/04/19 - Discharge Diagnosis (1) Atrial fibrillation with rapid ventricular response Is this a current diagnosis for this admission?: Yes (2) Hypertension Is this a current diagnosis for this admission?: Yes - Additional Information Resuscitation Status: Full Code Discharge Diet: Regular Discharge Activity: Activity As Tolerated Referrals: ARTEM ATKINSON MD [ACTIVE STAFF] - 05/13/19 11:15 am Prescriptions: Aspirin [Aspir-Low] 81 mg PO DAILY #30 tablet. Cephalexin [Keflex] 500 mg PO BID 5 Days #10 capsule Flecainide Acetate [Tambocor 100 mg Tablet] 50 mg PO Q12 #30 Rivaroxaban [Xarelto] 20 mg PO QHS #30 tablet Home Medications: Cetirizine HCl [Zyrtec] 10 mg PO DAILY 05/03/19 Gabapentin [Neurontin 300 mg Capsule] 300 mg PO BID 05/03/19 Gabapentin [Neurontin 300 mg Capsule] 600 mg PO QHS 05/03/19 Letrozole [Femara 2.5 mg Tablet] 2.5 mg PO DAILY 05/03/19 Aspirin [Aspir-Low] 81 mg PO DAILY #30 tablet. 05/04/19 Flecainide Acetate [Tambocor 100 mg Tablet] 50 mg PO Q12 #30 05/04/19 Rivaroxaban [Xarelto] 20 mg PO QHS #30 tablet 05/04/19 Cephalexin [Keflex] 500 mg PO BID 5 Days #10 capsule 05/05/19 History of Present Illiness History of Present Illness: Admitting hospitalist's H&P: JESS RAI is a 68 year old female who presented to the emergency room with an acute syncopal episode. She admits that she suddenly began feeling dizzy and lightheaded while at home, about an hour prior to her ER presentation, suspecting she may be about to "pass out" she sat down in a chair and had her stand behind her. She then "passed out" for about 60 seconds and woke up. She further admits that she has had intermittent episodes of dizziness throughout the day today. She denies other associated or accompanying signs and symptoms. She admits several prior similar episodes of syncope over the last 4 months. She further admits a history of paroxysmal atrial fibrillation and is supposed to be taking Eliquis, which was being provided to her as samples by her previous care provider. Since she moved to this area recently, she no longer has access to this medication, but insists she has been taking her flecainide as directed. She has not identified any aggravating or ameliorating factors for her syncope. In the emergency room she was found to have atrial fibrillation with a rapid ventricular response and was started on a Cardizem infusion after receiving bolus dose of intravenous Cardizem. Patient was subsequently admitted to the [facility] for further evaluation and treatment. Hospital Course Hospital Course: This is a 68-year-old female who was admitted for A. fib with RVR. She was initially started on Cardizem drip and was weaned off overnight. She was was also given an digoxin. Cardiology was also consulted. Patient converted to normal sinus rhythm. She was restarted on flecainide per cardiology recommendation. She has not been compliant with her Eliquis due to insurance and cost issues. Discharge planning assisted patient with acquiring Xarelto and hence her Eliquis will be switched to Xarelto. She will follow-up with Dr. Dumont and her PCP in 1 to 2 weeks. She was also treated with Rocephin for her UTI. Urine culture grew pansensitive E. coli. She will be given 5 more days of Keflex. Physical Exam Vital Signs: Temp Pulse Resp BP Pulse Ox 97.5 F 65 17 120/68 97 05/04/19 13:56 05/04/19 13:56 05/04/19 13:56 05/04/19 13:56 05/04/19 13:56 Intake & Output 05/04/19 05/05/19 05/06/19 06:59 06:59 06:59 Intake Total 960 360 Balance 960 360 Weight 212 lb 4.882 oz General appearance: PRESENT: no acute distress, well-developed, well-nourished Head exam: PRESENT: atraumatic, normocephalic Eye exam: PRESENT: conjunctiva pink, EOMI, PERRLA. ABSENT: scleral icterus Ear exam: PRESENT: normal external ear exam Mouth exam: PRESENT: moist, tongue midline Neck exam: ABSENT: carotid bruit, JVD, lymphadenopathy, thyromegaly Respiratory exam: PRESENT: clear to auscultation melissa. ABSENT: rales, rhonchi, wheezes Cardiovascular exam: PRESENT: RRR. ABSENT: diastolic murmur, rubs, systolic murmur Pulses: PRESENT: normal dorsalis pedis pul GI/Abdominal exam: PRESENT: normal bowel sounds, soft. ABSENT: distended, guarding, mass, organolmegaly, rebound, tenderness Rectal exam: PRESENT: deferred Extremities exam: PRESENT: full ROM. ABSENT: calf tenderness, clubbing, pedal edema Neurological exam: PRESENT: alert, awake, oriented to person, oriented to place, oriented to time, oriented to situation, CN II-XII grossly intact. ABSENT: motor sensory deficit Results Laboratory Results: WBC 5.2 10^3/uL (4.0-10.5) 05/04/19 06:29 RBC 3.51 10^6/uL (3.72-5.28) L 05/04/19 06:29 Hgb 10.7 g/dL (12.0-15.5) L 05/04/19 06:29 Hct 31.9 % (36.0-47.0) L 05/04/19 06:29 MCV 91 fl (80-97) 05/04/19 06:29 MCH 30.4 pg (27.0-33.4) 05/04/19 06:29 MCHC 33.5 g/dL (32.0-36.0) 05/04/19 06:29 RDW 14.4 % (11.5-14.0) H 05/04/19 06:29 Plt Count 133 10^3/uL (150-450) L 05/04/19 06:29 Lymph % (Auto) 15.9 % (13-45) 05/02/19 20:20 [place] % (Auto) 6.6 % (3-13) 05/02/19 20:20 Eos % (Auto) 0.2 % (0-6) 05/02/19 20:20 Baso % (Auto) 0.3 % (0-2) 05/02/19 20:20 Absolute Neuts (auto) 9.7 10^3/uL (1.7-8.2) H 05/02/19 20:20 Absolute Lymphs (auto) 2.0 10^3/uL (0.5-4.7) 05/02/19 20:20 Absolute Monos (auto) 0.8 10^3/uL (0.1-1.4) 05/02/19 20:20 Absolute Eos (auto) 0.0 10^3/uL (0.0-0.6) 05/02/19 20:20 Absolute Basos (auto) 0.0 10^3/uL (0.0-0.2) 05/02/19 20:20 Seg Neutrophils % 77.0 % (42-78) 05/02/19 20:20 Sodium 141.1 mmol/L (137-145) 05/03/19 10:00 Potassium 3.8 mmol/L (3.6-5.0) 05/04/19 06:29 Chloride 104 mmol/L (98-107) 05/03/19 10:00 Carbon Dioxide 24 mmol/L (22-30) 05/03/19 10:00 Anion Gap 13 (5-19) 05/03/19 10:00 BUN 11 mg/dL (7-20) 05/03/19 10:00 Creatinine 0.58 mg/dL (0.52-1.25) 05/03/19 10:00 Est GFR ( Amer) > 60 (>60) 05/03/19 10:00 Est GFR (MDRD) Non-Af > 60 (>60) 05/03/19 10:00 Glucose 125 mg/dL (75-110) H 05/03/19 10:00 Calcium 7.9 mg/dL (8.4-10.2) L 05/03/19 10:00 Magnesium 1.9 mg/dL (1.6-2.3) 05/04/19 06:29 Total Bilirubin 0.5 mg/dL (0.2-1.3) 05/02/19 20:20 Direct Bilirubin 0.1 mg/dL (0.0-0.4) 05/02/19 20:20 Neonat Total Bilirubin Not Reportable 05/02/19 20:20 Neonat Direct Bilirubin Not Reportable 05/02/19 20:20 Neonat Indirect Bili Not Reportable 05/02/19 20:20 AST 23 U/L (14-36) 05/02/19 20:20 ALT 19 U/L (<35) 05/02/19 20:20 Alkaline Phosphatase 71 U/L (38-126) 05/02/19 20:20 Creatine Kinase 42 U/L (30-135) 05/03/19 16:15 CK-MB (CK-2) 0.38 ng/mL (<4.55) 05/03/19 16:15 Troponin I 0.038 ng/mL 05/03/19 16:15 Total Protein 7.8 g/dL (6.3-8.2) 05/02/19 20:20 Albumin 4.3 g/dL (3.5-5.0) 05/02/19 20:20 TSH 1.21 uIU/mL (0.47-4.68) 05/02/19 20:20 Free T4 1.26 ng/dL (0.78-2.19) 05/02/19 20:20 Free T3 pg/mL 3.17 pg/mL (2.77-5.27) 05/02/19 20:20 Urine Color YELLOW 05/02/19 20:20 Urine Appearance SLIGHTLY-CLOUDY 05/02/19 20:20 Urine pH 6.0 (5.0-9.0) 05/02/19 20:20 Ur Specific [place] 1.017 05/02/19 20:20 Urine Protein NEGATIVE mg/dL (NEGATIVE) 05/02/19 20:20 Urine Glucose (UA) NEGATIVE mg/dL (NEGATIVE) 05/02/19 20:20 Urine Ketones 20 mg/dL (NEGATIVE) H 05/02/19 20:20 Urine Blood NEGATIVE (NEGATIVE) 05/02/19 20:20 Urine Nitrite POSITIVE (NEGATIVE) H 05/02/19 20:20 Urine Bilirubin NEGATIVE (NEGATIVE) 05/02/19 20:20 Urine Urobilinogen NEGATIVE mg/dL (<2.0) 05/02/19 20:20 Ur Leukocyte Esterase LARGE (NEGATIVE) H 05/02/19 20:20 Urine WBC (Auto) 126 /HPF 05/02/19 20:20 Urine RBC (Auto) 11 /HPF 05/02/19 20:20 U Hyaline Cast (Auto) 1 /LPF 05/02/19 20:20 Urine Bacteria (Auto) 2+ /HPF 05/02/19 20:20 Urine WBC Clumps FEW /HPF 05/02/19 20:20 Squamous Epi Cells Auto 1 /HPF 05/02/19 20:20 Urine Mucus (Auto) FEW /LPF 05/02/19 20:20 Urine Ascorbic Acid NEGATIVE (NEGATIVE) 05/02/19 20:20 05/02/19 05/03/19 05/03/19 20:20 02:30 10:00 CK-MB (CK-2) 0.69 0.43 0.51 Troponin I < 0.012 < 0.012 0.034 05/03/19 16:15 CK-MB (CK-2) 0.38 Troponin I 0.038 Impressions: Chest X-Ray 05/02/19 20:46 IMPRESSION: No acute cardiopulmonary disease. Hip X-Ray 05/02/19 21:09 IMPRESSION: 1. No acute findings. Abdomen Ultrasound 05/04/19 00:00 IMPRESSION: NO ABDOMINAL AORTIC ANEURYSM. Stroke Is this a Stroke Patient?: No Acute Heart Failure - Is this a Heart Failure Patient?: No
== END 2019-05-04 14:48 | disposition home or self-care (01) ==
LOC: ER 19:11 → INTOOBSV 22:42 → EH 22:42 → 3S 05-03 00:59
PROVIDERS: ADMIT Emergency Medicine; ATTEND Emergency Medicine
DX: I48.0 Paroxysmal atrial fibrillation (principal); I10 Essential (primary) hypertension; N39.0 Urinary tract infection, site not specified; B96.20 Unspecified Escherichia coli [E. coli] as the cause of diseases classified elsewhere; G25.0 Essential tremor; I71.4 Abdominal aortic aneurysm, without rupture; J30.9 Allergic rhinitis, unspecified; G89.29 Other chronic pain; M54.9 Dorsalgia, unspecified; Z59.9 Problem related to housing and economic circumstances, unspecified; Z79.82 Long term (current) use of aspirin; Z85.3 Personal history of malignant neoplasm of breast; Z85.828 Personal history of other malignant neoplasm of skin; Z90.12 Acquired absence of left breast and nipple; Z87.891 Personal history of nicotine dependence; Z88.0 Allergy status to penicillin; Z88.8 Allergy status to other drugs, medicaments and biological substances; Z23 Encounter for immunization
CPT/HCPCS: 93005 ×2; 96376; 99285; 96375; 96365; 36415 ×3; 87086; 84439; 82553 ×2; 82550 ×2; 83735 ×2; 84132; 84443; 85025; 85027 ×2; 87088; 80048; 80053; 81001; 84484 ×2; 87186; 84481; 71045; 73502; 76706; 90686; 93010 ×2; 90471; A9270 ×10; J1160; J3490 ×4; J7120; J1650; J0696; G0378

== ENCOUNTER 2019-05-23 10:34 | Day surgery (SDC) | payer MEDICARE, OTHER ==
[~2019-05-23 10:34] MED LIST: DEXAMETHASONE SOD PHOSPHATE INJ 4 MG/1 ML VIAL ONE; FENTANYL CITRATE INJ/PF 100 MCG/2 ML AMPUL ONE; MIDAZOLAM 2 MG/2 ML INJ ONE; ONDANSETRON HCL INJ/PF 4 MG/2 ML SDV ONE; PROPOFOL INJ 200 MG/20 ML VIAL IV ONE; SUGAMMADEX SODIUM 200 MG/2 ML SDV IV ONE
--- NOTE | 2019-05-23 12:04 | RADIOLOGY REPORT (SQ) ---
EXAM DESCRIPTION: CHEST SINGLE VIEW COMPLETED DATE/TIME: 05/23/2019 11:32 am REASON FOR STUDY: PREOP COMPARISON: 05/02/2019 EXAM PARAMETERS: NUMBER OF VIEWS: One view. TECHNIQUE: Single frontal radiographic view of the chest acquired. RADIATION DOSE: NA LIMITATIONS: None. FINDINGS: LUNGS AND PLEURA: Emphysematous change with hyperinflation and flattening of the hemidiaph ragm. No focal consolidation, pleural effusion or pneumothorax. MEDIASTINUM AND HILAR STRUCTURES: No masses. Contour normal. HEART AND VASCULAR STRUCTURES: Heart normal in size. Normal vasculature. BONES: No acute findings. HARDWARE: Surgical clips overlie chest bilaterally. OTHER: No other significant finding. IMPRESSION: Emphysematous without evidence of acute cardiopulmonary process. TECHNICAL DOCUMENTATION: JOB ID: [id number]- All Rights Reserved Reading location - IP/workstation name: [email or web address]
[2019-05-23 12:24] LABS: APPEARANCE,URINE CLEAR; BILIRUBIN,URINE NEGATIVE (NEGATIVE); COLOR,URINE YELLOW; GLUCOSE, URINE NEGATIVE (NEGATIVE); KETONES,URINE NEGATIVE (NEGATIVE); LEUKOCYTE ESTERASE,URINE TRACE (NEGATIVE); NITRITE,URINE NEGATIVE (NEGATIVE); PROTEIN,URINE NEGATIVE (NEGATIVE); UROBILINOGEN,URINE NEGATIVE mg/dL (<2.0)
[2019-05-23 12:53] LABS: INTERNATIONAL RATION (INR) 1.02; PARTIAL THROMBOPLASTIN TIME 25.8 SEC (23.5-35.8); PROTHROMBIN TIME 13.4 SEC (11.4-15.4)
[2019-05-23 13:32] LABS: HEMATOCRIT 34.5 % (36.0-47.0); HEMOGLOBIN 11.7 g/dL (12.0-15.5); MEAN CORPUSCULAR HEMOGLOBIN 31.7 pg (27.0-33.4); MEAN CORPUSCULAR HGB CONC 33.7 g/dL (32.0-36.0); MEAN CORPUSCULAR VOLUME 94 fl (80-97); PLATELET COUNT 176 10^3/uL (150-450); RED BLOOD COUNT 3.67 10^6/uL (3.72-5.28); RED CELL DISTRIBUTION WIDTH 15.5 % (11.5-14.0); WHITE BLOOD COUNT 4.9 10^3/uL (4.0-10.5)
[2019-05-23 13:48] LABS: ANION GAP 9 (5-19); BLOOD UREA NITROGEN 15 mg/dL (7-20); CALCIUM 9.1 mg/dL (8.4-10.2); CARBON DIOXIDE 27 mmol/L (22-30); CHLORIDE 108 mmol/L (98-107); GLUCOSE 94 mg/dL (75-110); POTASSIUM 4.4 mmol/L (3.6-5.0)
--- NOTE | 2019-05-23 14:41 | EKG REPORT ---
SEVERITY:- ABNORMAL ECG - SINUS RHYTHM PROBABLE LEFT ATRIAL ABNORMALITY NONSPECIFIC INTRAVENTRICULAR CONDUCTION DELAY : Confirmed by: Heather Ibarra MD 23-May-2019 14:40:18
[2019-05-23] MEDS ORDERED: CLINDAMYCIN 600 MG/D5W RTU 600 MG/50 ML RTUPB IV ONE (15:18)
[2019-05-23] MEDS ORDERED: DEXAMETHASONE SOD PHOSPHATE INJ 4 MG/1 ML VIAL ONE (16:17)
[2019-05-23] MEDS ORDERED: ONDANSETRON HCL INJ/PF 4 MG/2 ML SDV ONE (16:17)
[2019-05-23] MEDS ORDERED: PROPOFOL INJ 200 MG/20 ML VIAL IV ONE (16:17)
[2019-05-23] MEDS ORDERED: MIDAZOLAM 2 MG/2 ML INJ ONE (16:17)
[2019-05-23] MEDS ORDERED: FENTANYL CITRATE INJ/PF 100 MCG/2 ML AMPUL ONE (16:17)
[2019-05-23] MEDS ORDERED: MEPERIDINE HCL/PF INJ 25 MG/1 ML DISP.SYRIN IV PRN (17:24)
[2019-05-23] MEDS ORDERED: ONDANSETRON HCL INJ/PF 4 MG/2 ML SDV IV PRN (17:24)
[2019-05-23] MEDS ORDERED: DIPHENHYDRAMINE HCL 50 MG/ML VIAL IV PRN (17:24)
[2019-05-23] MEDS ORDERED: MORPHINE SULFATE 10 MG/ML INJ IV PRN (17:24)
[2019-05-23] MEDS ORDERED: FENTANYL CITRATE INJ/PF 100 MCG/2 ML AMPUL IV PRN ×3 (17:24)
--- NOTE | 2019-05-23 17:27 | Operative Report ---
Operative Report DATE OF SURGERY: 05/23/19 PREOPERATIVE DIAGNOSIS: Jacobsen lavage a lesion left hip OPERATION: Irrigation debridement of left hip hematoma SURGEON: MELL KOEHLER ANESTHESIA: GA TISSUE REMOVED OR ALTERED: Cultures to microbiology. Tissue to pathology ESTIMATED BLOOD LOSS: Minimal PROCEDURE: With the patient in a right lateral decubitus position on the operating room table the left hindquarter was prepped and draped in a sterile fashion. A 6 cm longitudinal incision was made over the region of the greater trochanter. Upon penetrating the muscle fascia a large amount of hematoma is elaborated along with a Morphis material. The hematoma bed measures approximately 20 x 25 cm. Is completely evacuated. The wound is pulse irrigated with normal saline containing Betadine. Yevgeniy-Tatum drain is placed. The wound was then closed with interrupted Vicryl followed by nylon. A sterile dressing was applied and the patient is returned to the PACU in satisfactory condition.
--- NOTE | 2019-05-23 17:30 | Discharge Summary ---
Discharge Summary (SDC) - Discharge Final Diagnosis: Mynor Sanchez lesion left hip Date of Surgery: 05/23/19 Discharge Date: 05/23/19 Condition: Good Treatment or Instructions: Weightbearing as tolerated ambulation. Please instruct patient on doing the Yevgeniy-Tatum drain 3 times a day and recording the volume Prescriptions: Oxycodone HCl/Acetaminophen [Percocet 5-325 mg Tablet] 1 tab PO Q6 PRN #25 tab PRN Reason: Discharge Diet: Regular Respiratory Treatments at Home: Deep Breathing/Coughing Discharge Activity: Balance Activity w/Rest, No tub bath, Other - Empty Yevgeniy- Tatum drain 3 times a day and record volume Home Care Assistance: None Needed Report the Following to Your Physician Immediately: Shortness of Breath, Fever over 101 Degrees, Drainage-Foul Smelling
[2019-05-23] MEDS ORDERED: OXYCODONE-ACETAMINOPHEN 5-325 MG TABLET PO PRN (18:22)
[2019-05-23 19:15] VITALS: BP 142/87
== END 2019-05-23 19:45 | disposition home or self-care (01) ==
LOC: OROUT 10:34
PROVIDERS: ATTEND Orthopaedic Surgery
DX: S70.02XA Contusion of left hip, initial encounter (principal); W13.3XXA Fall through floor, initial encounter; I10 Essential (primary) hypertension; I48.91 Unspecified atrial fibrillation; Z68.29 Body mass index [BMI] 29.0-29.9, adult; Z79.01 Long term (current) use of anticoagulants; Z85.3 Personal history of malignant neoplasm of breast; Z87.891 Personal history of nicotine dependence; E66.3 Overweight; E07.9 Disorder of thyroid, unspecified
CPT/HCPCS: 36415; 87070; 87205; 85027; 85610; 85730; 87075; 80048; 81001; 71045; 93005; 93010; 01250; 11043; 11046; J2250; J1100; J3010; J2405; J2704; J3490; 1250

== ENCOUNTER 2019-05-24 04:10 | Emergency (ER) | payer MEDICARE, OTHER ==
--- NOTE | 2019-05-24 04:59 | ER Document Report ---
ED General - General Chief Complaint: Post Surgical Bleeding Stated Complaint: POST OP BLEEDING Time Seen by Provider: 05/24/19 04:43 Notes: Ms. York is a 68 yo F w/ PMH of essential tremor, hypertension, chronic back pain, AAA, A. fib on Xarelto stopped on the 6th sending to the ED for postoperative bleeding. Patient had a hematoma evacuation of the left thigh earlier today by Dr. Mallory. She states that ever since getting home, she has been unable to stop the bleeding. She is been soaking through multiple ABD pads and filling up the Yevgeniy-Tatum drain. states that they live approximately 15 minutes away. Prior to leaving her home, they emptied 90 mL's of blood from the drain. Upon arrival, the patient's drain was emptied and had an additional 60 mL's of blood in it. Patient endorses some mild lightheadedness. No falls or trauma since his surgeries. She states that the last dose of Xarelto that she had was on the 6 and has not had any since the surgery. Denies any shortness of breath, chest pain, fever or chills. TRAVEL OUTSIDE OF THE [place] IN LAST 30 DAYS: No - Related Data Allergies/Adverse Reactions: Penicillins Allergy (Verified 05/24/19 04:23) prochlorperazine [From Compazine] Allergy (Verified 05/24/19 04:23) Home Medications: See Med Rec Past Medical History - Social History Smoking Status: Former Smoker Chew tobacco use (# tins/day): No Frequency of alcohol use: 4-5 beers a week Drug Abuse: None Family History: CAD, Hypertension, Malignancy, Other - Aortic aneurysms. denies: DM Patient has suicidal ideation: No Patient has homicidal ideation: No - Past Medical History Cardiac Medical History: Reports: Hx Atrial Fibrillation, Hx Hypertension Denies: Hx Congestive Heart Failure, Hx Coronary Artery Disease, Hx Heart Attack, Hx Hypercholesterolemia Pulmonary Medical History: Denies: Hx Asthma, Hx Bronchitis, Hx COPD, Hx Pneumonia Neurological Medical History: Denies: Hx Cerebrovascular Accident, Hx Seizures Endocrine Medical History: Denies: Hx Diabetes Mellitus Type 1, Hx Diabetes Mellitus Type 2, Hx Hyperthyroidism, Hx Hypothyroidism Malignancy Medical History: Reports: Hx Breast Cancer, Hx Skin Cancer - Basal cell. Symptoms GI Medical History: Denies: Hx Cirrhosis, Hx Hepatitis Musculoskeletal Medical History: Denies Hx Arthritis, Denies Hx Gout Skin Medical History: Denies Hx Eczema, Denies Hx Psoriasis Infectious Medical History: Denies: Hx Hepatitis Past Surgical History: Reports: Hx Appendectomy, Hx Breast Surgery, Hx Mastectomy - Left, Hx Tonsillectomy - Immunizations Hx Diphtheria, Pertussis, Tetanus Vaccination: Yes Physical Exam - Vital signs Vitals: Temp Pulse Resp BP Pulse Ox 97.5 F 59 L 20 110/66 94 05/24/19 04:19 05/24/19 04:19 05/24/19 04:19 05/24/19 04:19 05/24/19 04:19 Interpretation: Normal - General General appearance: Appears well, Alert - HEENT Head: Normocephalic, Atraumatic Eyes: Normal Pupils: PERRL - Respiratory Respiratory status: No respiratory distress Chest status: Nontender Breath sounds: Normal Chest palpation: Normal - Cardiovascular Rhythm: Regular Heart sounds: Normal auscultation Murmur: No - Abdominal Inspection: Normal Distension: No distension Bowel sounds: Normal Tenderness: Nontender Organomegaly: No organomegaly - Back Back: Normal, Nontender - Extremities General upper extremity: Normal inspection, Nontender, Normal color, Normal ROM, Normal temperature General lower extremity: Normal ROM, Normal temperature, Normal weight bearing, Other - L lateral thigh has 7cm incision with sutures in place over the left greater trochanter. Large surrounding ecchymosis. MARLEEN drain in place that is actively draining.. No: Abiodun's sign - Neurological Neuro grossly intact: Yes Cognition: Normal Orientation: AAOx4 [place] Coma Scale Eye Opening: Spontaneous Britney Coma Scale Verbal: Oriented [place] Coma Scale Motor: Obeys Commands [place] Coma Scale Total: 15 Speech: Normal Motor strength normal: LUE, RUE, LLE, RLE Sensory: Normal - Psychological Associated symptoms: Normal affect, Normal mood - Skin Skin Temperature: Warm Skin Moisture: Dry Skin Color: Normal Course - Re-evaluation Re-evalutation: Patient is generally well-appearing and nontoxic. Initial vitals within normal limits. Patient appeared uncomfortable with some tenderness around the incision site however she was offered pain meds and declined. Differential diagnosis includes vascular injury, expanding hematoma, anemia, contusion 05/24/19 04:[address] Rios. He states he be happy to admit the patient for H&H trending should she need admission. 05/24/19 06:18 Dr. Mallory personally evaluated the patient at the bedside. Does not know concerned about the patient's CT or clinical evaluation. He states that the MARLEEN drain is actively draining. Recommended that the patient remain in pressure dressing. Unfortunately the patient's CBC clotted. CMP within normal limits. Stated that the patient could be discharged if her H&H is WNL. 05/24/19 07:20 - Vital Signs Vital signs: Temp Pulse Resp BP Pulse Ox 97.5 F 59 L 17 136/83 H 96 05/24/19 04:19 05/24/19 04:19 05/24/19 05:01 05/24/19 05:00 05/24/19 05:01 - Laboratory Result Diagrams: 05/24/19 05:28 05/24/19 05:28 Laboratory results interpreted by me: 05/24/19 05:28 Chloride 108 H Glucose 118 H Discharge - Discharge Clinical Impression: Post surgical complication, Bleeding Condition: Good Disposition: OTHER
[2019-05-24 05:49] LABS: INTERNATIONAL RATION (INR) 1.08
[2019-05-24 05:50] LABS: PARTIAL THROMBOPLASTIN TIME 25.5 SEC (23.5-35.8)
[2019-05-24 06:05] LABS: ALBUMIN 3.9 g/dL (3.5-5.0); ALKALINE PHOSPHATASE 49 U/L (38-126); ANION GAP 11 (5-19); ASPARTATE AMINO TRANSFERASE 24 U/L (14-36); BILIRUBIN,DIRECT 0.2 mg/dL (0.0-0.4); BILIRUBIN,TOTAL 0.8 mg/dL (0.2-1.3); BLOOD UREA NITROGEN 17 mg/dL (7-20); CALCIUM 9.4 mg/dL (8.4-10.2); CARBON DIOXIDE 25 mmol/L (22-30); CHLORIDE 108 mmol/L (98-107); GLUCOSE 118 mg/dL (75-110); POTASSIUM 4.3 mmol/L (3.6-5.0); TOTAL PROTEIN 7.1 g/dL (6.3-8.2)
--- NOTE | 2019-05-24 06:21 | RADIOLOGY REPORT (SQ) ---
CT left hip with contrast on 05/24/2019 at 5:54 AM CLINICAL INDICATION: Recent left hip surgery, ongoing bleeding from hematoma TECHNIQUE: Multiple axial images are obtained throughout the left hip following the administration of IV contrast. Sagittal and coronal reformatted images are also performed and reviewed. This exam was performed according to our departmental dose-optimization program, which includes automated exposure control, adjustment of the mA and/or kV according to patient size and/or use of iterative reconstruction technique. Total DLP is 1489.68 mGy*cm. COMPARISON: Left hip x-ray from 05/02/2019 FINDINGS: Vascular calcifications are noted. There is diverticulosis. The patient is status post hysterectomy. There is no left pelvic adenopathy. No free fluid is noted in the visualized pelvis. There is a large hematoma in the left lateral hip subcutaneous tissues extending along the myofascial plane but not into the musculature. There is a surgical drain in place within the posterior aspect of this hematoma. There is air within this as well. At one level this measures approximately 12.7 x 5.0 x 15.8 cm. No active bleeding is noted. Old healed right pelvic fractures are partially imaged. No acute fracture line is noted. No other bony or soft tissue abnormality is noted. IMPRESSION: Large hematoma in the left lateral hip soft tissues with associated air that is likely just related to the drain and recent surgery although cannot exclude infected hematoma. No evidence of active bleeding is noted.
[2019-05-24 07:25] LABS: ABSOLUTE LYMPHOCYTES (AUTO) 1.2 10^3/uL (0.5-4.7); ABSOLUTE MONOCYTES (AUTO) 0.5 10^3/uL (0.1-1.4); ABSOLUTE NEUT (AUTO) 4.5 10^3/uL (1.7-8.2); BASOPHILS % (AUTO) 0.7 % (0-2); EOSINOPHILS % (AUTO) 0.4 % (0-6); HEMATOCRIT 31.3 % (36.0-47.0); HEMOGLOBIN 10.6 g/dL (12.0-15.5); LYMPHOCYTES % (AUTO) 19.4 % (13-45); MEAN CORPUSCULAR HEMOGLOBIN 31.9 pg (27.0-33.4); MEAN CORPUSCULAR HGB CONC 33.8 g/dL (32.0-36.0); MEAN CORPUSCULAR VOLUME 94 fl (80-97); MONOCYTES % (AUTO) 8.2 % (3-13); PLATELET COUNT 191 10^3/uL (150-450); RED BLOOD COUNT 3.32 10^6/uL (3.72-5.28); RED CELL DISTRIBUTION WIDTH 15.8 % (11.5-14.0); SEGMENTED NEUTROPHILS % (AUTO) 71.3 % (42-78); TOTAL CELLS COUNTED % (AUTO) 100 %; WHITE BLOOD COUNT 6.3 10^3/uL (4.0-10.5)
--- NOTE | 2019-05-24 08:34 | ER Document Report ---
ED General - General Chief Complaint: Post Surgical Bleeding Stated Complaint: POST OP BLEEDING Time Seen by Provider: 05/24/19 04:43 TRAVEL OUTSIDE OF THE [place] IN LAST 30 DAYS: No - HPI Context: Pt being discharged. refer to previous note for h and p - Related Data Allergies/Adverse Reactions: Penicillins Allergy (Verified 05/24/19 04:23) prochlorperazine [From Compazine] Allergy (Verified 05/24/19 04:23) Home Medications: See Med Rec Past Medical History - Social History Smoking Status: Former Smoker Chew tobacco use (# tins/day): No Frequency of alcohol use: 4-5 beers a week Drug Abuse: None Family History: CAD, Hypertension, Malignancy, Other - Aortic aneurysms. denies: DM Patient has suicidal ideation: No Patient has homicidal ideation: No - Past Medical History Cardiac Medical History: Reports: Hx Atrial Fibrillation, Hx Hypertension Denies: Hx Congestive Heart Failure, Hx Coronary Artery Disease, Hx Heart Attack, Hx Hypercholesterolemia Pulmonary Medical History: Denies: Hx Asthma, Hx Bronchitis, Hx COPD, Hx Pneumonia Neurological Medical History: Denies: Hx Cerebrovascular Accident, Hx Seizures Endocrine Medical History: Denies: Hx Diabetes Mellitus Type 1, Hx Diabetes Mellitus Type 2, Hx Hyperthyroidism, Hx Hypothyroidism Malignancy Medical History: Reports: Hx Breast Cancer, Hx Skin Cancer - Basal cell. Symptoms GI Medical History: Denies: Hx Cirrhosis, Hx Hepatitis Musculoskeletal Medical History: Denies Hx Arthritis, Denies Hx Gout Skin Medical History: Denies Hx Eczema, Denies Hx Psoriasis Infectious Medical History: Denies: Hx Hepatitis Past Surgical History: Reports: Hx Appendectomy, Hx Breast Surgery, Hx Mastectomy - Left, Hx Tonsillectomy - Immunizations Hx Diphtheria, Pertussis, Tetanus Vaccination: Yes Physical Exam - Vital signs Vitals: Temp Pulse Resp BP Pulse Ox 97.5 F 59 L 20 110/66 94 05/24/19 04:19 05/24/19 04:19 05/24/19 04:19 05/24/19 04:19 05/24/19 04:19 Course - Vital Signs Vital signs: Temp Pulse Resp BP Pulse Ox 97.5 F 59 L 17 136/83 H 96 05/24/19 04:19 05/24/19 04:19 05/24/19 05:01 05/24/19 05:00 11/12/19 05:01 - Laboratory Result Diagrams: 05/24/19 07:13 05/24/19 05:28 Laboratory results interpreted by me: 05/24/19 05/24/19 05:28 07:13 RBC 3.32 L Hgb 10.6 L Hct 31.3 L RDW 15.8 H Chloride 108 H Glucose 118 H Discharge - Discharge Clinical Impression: Post surgical complication, Bleeding Condition: Good Disposition: OTHER Instructions: Dressing Instructions for Open Wounds ([facility]) Additional Instructions: See Dr. Koehler in follow up. Please Return here for any problems or any concerns including but not limited to bleeding, chest pain, dizziness or other problems or concerns. Referrals: MELL KOEHLER MD [ACTIVE STAFF] - Follow up as needed
[2019-05-24 09:21] VITALS: BP 114/79
== END 2019-05-24 09:38 | disposition other institution (70) ==
LOC: ER 04:10
DX: L76.22 Postprocedural hemorrhage of skin and subcutaneous tissue following other procedure (principal); L76.32 Postprocedural hematoma of skin and subcutaneous tissue following other procedure; I48.91 Unspecified atrial fibrillation; I10 Essential (primary) hypertension; Z88.0 Allergy status to penicillin; Z85.3 Personal history of malignant neoplasm of breast; Z85.828 Personal history of other malignant neoplasm of skin
CPT/HCPCS: 36415; 80053; 85025; 85610; 85730; 86850; 86900; 86901; 99284

== ENCOUNTER → 2020-03-05 | Outpatient (CLI) | payer MEDICARE, OTHER ==
--- NOTE | 2020-03-05 14:35 | WOMENS IMAGING REPORT ---
EXAM DESCRIPTION: BONE DENSITY HIP/SPINE IMAGES COMPLETED DATE/TIME: 03/05/2020 1:56 pm REASON FOR STUDY: Z78.0 ASYMPTOMATIC MENOPAUSAL STATE Z78.0 ASYMPTOMATIC MENOPAUSAL STATE COMPARISON: None. TECHNIQUE: Dual-Energy X-ray Absorptiometry (DEXA) of the AP Spine and Hip. LIMITATIONS: None. FINDINGS: LUMBAR SPINE: The bone mineral density (BMD) measured from L1-L4 in the AP projection correlates with a T-score of -1.6, which is osteopenia as defined by the World Health Organization. BMD Change vs Baseline: N/A HIP: The bone mineral density (BMD) measured in the left hip correlates with a T-score of -1.5, which is o steopenia as defined by the World Health Organization. BMD Change vs Baseline: N/A 10 year Fracture Risk Assessment: Major Osteoporotic Fracture: Not available. Hip Fracture: Not available. IMPRESSION: 1. LUMBAR SPINE WHO CLASSIFICATION: OSTEOPENIA. 2. HIP WHO CLASSIFICATION: OSTEOPENIA. OVERALL ASSESSMENT: WHO CLASSIFICATION: OSTEOPENIA. COMMENT: The World Health Organization defines low BMD as follows: T-score: Normal: At or above -1.0 Osteopenia: Between -1.0 and -2.5 Osteoporosis: At or below -2.5 without fractures Established osteoporosis: At or below -2.5 with fractures In general, you may wish to consider: Diagnosis Treatment Follow-up DEXA Normal BMD Prevention 2-3 years Osteopenia Prevention/Therapy 1-2 years Osteoporosis Therapy Yearly TECHNICAL DOCUMENTATION: JOB ID: [id number] 2010 [employer]- All Rights Reserved Reading location - IP/workstation name: [email or web address]
== END ==
LOC: WI 13:22
PROVIDERS: ATTEND Internal Medicine Hematology & Oncology
DX: Z78.0 Asymptomatic menopausal state (principal)
CPT/HCPCS: 77080